=== PATIENT | male | born 1965 | race Caucasian/White ===

== ENCOUNTER 2024-12-13 00:07 | Emergency (ER) | payer MEDICAID, OTHER ==
[2024-12-13] MEDS: Sodium Chloride 0.9% 10 ML Syringe FLUSH PRN (00:25)
[2024-12-13] MEDS: Ketorolac 30 MG/ML SDV IVPUSH ONE (00:31)
[2024-12-13 00:36] LABS: BASOPHILS ABSOLUTE AUTO 0.04 10^3/uL (0.00-0.10); BASOPHILS PERCENT AUTO 0.3 % (0.0-1.0); EOSINOPHILS ABSOLUTE AUTO 0.03 10^3/uL (0.10-0.30); EOSINOPHILS PERCENT AUTO 0.2 % (1.0-3.0); HEMATOCRIT 51.5 % (40.0-52.0); HEMOGLOBIN 17.4 g/dL (13.0-17.0); IMMATURE GRAN ABSOLUTE AUTO 0.03 10^3/uL (0.00-0.04); IMMATURE GRAN PERCENT AUTO 0.2 % (0.0-0.4); LYMPHOCYTES ABSOLUTE AUTO 1.25 10^3/uL (1.00-4.00); LYMPHOCYTES PERCENT AUTO 8.3 % (20.0-40.0); MEAN CORPUSCULAR HEMOGLOBIN 27.9 pg (27.0-31.0); MEAN CORPUSCULAR HGB CONC 33.8 g/dL (32.0-36.0); MEAN CORPUSCULAR VOLUME 82.7 fL (82.0-92.0); MEAN PLATELET VOLUME 11.3 fL (7.4-10.4); MONOCYTES ABSOLUTE AUTO 1.03 10^3/uL (0.10-0.80); MONOCYTES PERCENT AUTO 6.9 % (2.0-8.0); NEUTROPHILS ABSOLUTE AUTO 12.64 10^3/uL (2.50-7.00); NEUTROPHILS PERCENT AUTO 84.1 % (50.0-70.0); PLATELET COUNT,PLT 201 10^3/uL (150-400); RED BLOOD CELL COUNT 6.23 10^6/uL (4.50-6.00); RED CELL DISTRIBUTION WIDTH 13.7 % (11.5-14.5); WHITE BLOOD CELL COUNT,WBC 15.02 10^3/uL (5.00-10.00)
[2024-12-13 00:52] LABS: ALBUMIN 3.74 g/dL (3.40-5.00); ANION GAP 11.7 mmol/L (5-15); CALCIUM 9.4 mg/dL (8.7-10.3); CARBON DIOXIDE,CO2 27.1 mmol/L (21.0-32.0); CREATININE 0.86 mg/dL (0.51-1.17); EST CRCL DRUG DOSING (CG) 99.01 mL/min; POTASSIUM,K 3.8 mmol/L (3.5-5.1); PROTEIN TOTAL,TP 7.8 g/dL (6.4-8.2)
[2024-12-13] MEDS: Sodium Chloride 0.9% 50 ML IV SCH (01:28)
[2024-12-13] MEDS: Iopamidol 755 Mg/ML 100 ML Bottle IV ONE (01:28)
[2024-12-13 04:35] VITALS: BP 143/102; PULSE 80
== END 2024-12-13 03:09 | disposition home or self-care (01) ==
LOC: KA.ED 00:07 → SUPCPDRO 00:07 → KA.ED 03:09
DX: R10.10 Upper abdominal pain, unspecified (principal); Z79.82 Long term (current) use of aspirin; Z79.899 Other long term (current) drug therapy
CPT/HCPCS: 36415; 74177; 80053; 83605; 83690; 85025; 86140; 96374; 99284; 99284-25; J1885; Q9967